=== PATIENT | male | born 1985 | race Caucasian/White ===

== ENCOUNTER 2023-07-02 08:18 | Emergency (ER) | payer BC, SELFPAY ==
--- NOTE | ~2023-07-02 | XR_ITS ---
EXAMINATION: XR shoulder RT min 2V DATE: 07/02/2023 08:46 INDICATION: Right shoulder pain and decreased range of motion. TECHNIQUE: 4 views of right shoulder were obtained. COMPARISON: None. FINDINGS: Bone alignment is normal. No fracture. There is severe osteoarthritis of the acromioclavicu lar joint and mild osteoarthritis of glenohumeral joint. IMPRESSION: 1. Polyarticular osteoarthritis. Reviewed, dictated and finalized at location A.
[2023-07-02 08:25] VITALS: BP 133/78; PULSE 81; RESP 20; TEMP 36.2; O2SAT 100
--- NOTE | 2023-07-02 10:02 | ED.GENADULT ---
HPI - General Adult General Chief complaint: Extremity Injury, Upper Stated complaint: Right Shoulder Injury Source: patient Mode of arrival: ambulatory Limitations: no limitations History of Present Illness HPI narrative: Patient presents for evaluation of right shoulder pain. Symptom onset yesterday. He was attempting to lift tool box and experience pain shortly thereafter. He rates his pain 8/10 severity, without descriptive quality. No radicular component. No paresthesias. He reports worsening pain with movement. He took Tylenol for symptoms without considerable improvement thereafter. He is right-hand dominant. Related Data Allergies Allergy/AdvReac Type Severity Reaction Status Date / Time No Known Allergies Allergy Mild Verified 07/02/23 08:42 Review of Systems Review of Systems: CONSTITUTIONAL: Denies fever, chills, or sweats. EYES: Denies visual changes, redness, or discharge. ENT: Denies rhinorrhea, congestion, sore throat, or otalgia. CARDIOVASCULAR: Denies chest pain, palpitations, or edema. RESPIRATORY: Denies cough or dyspnea. GASTROINTESTINAL: Denies abdominal pain, nausea, vomiting, or diarrhea. GENITOURINARY: Denies dysuria or hematuria. SKIN: Denies rash or itching. MUSCULOSKELETAL: Reports right shoulder pain. Denies back pain or myalgia NEUROLOGIC: Denies headache, numbness, dizziness, or weakness. PSYCHIATRIC: Denies anxiety or depression. [facility] Past Medical History Medical History Hypertension Surgical History Surgical History No pertinent past surgical history Family History Family History Mother Diabetes mellitus Grandparent Diabetes mellitus Social History Social History Smoking status: Never smoker Alcohol intake: current Alcohol use details: [place] 1-2 drinks a month Substance use: never Substance use type: does not use Lack of Transportation: No Lack of Food: Never True Current Housing: I Have Housing Concerned About Future Housing: No Difficulty Paying Gas/Electric Bills: No Difficulty Paying for Meds: No Currently Unemployed: No Education: Bachelor's Degree Difficulty w/ Childcare or Family Care: No Living arrangements: with family Occupation/Education: occupation Additional occupation/education comments: [employer] Gender identity (if verbalized by the patient): Male Agree to blood products: Yes Exam Narrative: GENERAL: Well-appearing, well-nourished, and in no acute distress. HEAD: Normocephalic, atraumatic. EYES: PERRLA and EOMI. ENT: Nares clear, no rhinorrhea or epistaxis. Mucous membranes moist. Oropharynx without tonsillar hypertrophy exudate or other lesions. Bilateral TMs pearly meyer nonbulging NECK: Supple. No adenopathy or masses. No carotid bruits or JVD CHEST: Clear to auscultation. No respiratory distress. No wheezes rales or rhonchi HEART: Regular rate and rhythm. No murmur heard. Normal peripheral pulses. ABDOMEN: Soft, nontender, nondistended, normal active bowel sounds. EXTREMITIES: Right shoulder is tender to palpation. Decreased ROM of right shoulder 2/2 pain. No crepitus. 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 NEURO: No focal deficits. Alert and oriented x3. PSYCH: Normal mood and affect. Course Course Emergency Course: This is a 38-year-old male who presented for evaluation of right shoulder pain. X-ray was negative for fracture. Exam is consistent with strain. Will discharge with muscle relaxer. NSAIDs for pain. Advised on RICE therapy.. Follow up with primary provider. Go to the ER for worsening symptoms. Pt in agreement with plan of care. Level of Care: Express Care Visit Vital Signs Vital signs:
== END 2023-07-02 09:05 | disposition home or self-care (01) ==
PROVIDERS: Emergency Provider Nurse Practitioner; PCP Nurse Practitioner Adult Health
DX: S43.401A Unspecified sprain of right shoulder joint, initial encounter (principal); X50.0XXA Overexertion from strenuous movement or load, initial encounter; I10 Essential (primary) hypertension
CPT/HCPCS: 73030; 99213; G0463